=== PATIENT | female | born 1970 | race Caucasian/White ===

== ENCOUNTER → 2017-03-07 | Outpatient (CLI) | payer BC ==
[~2017-03-07] MED LIST: ALBU1AER9 INH; CETICHW4 PO; MONT1TAB3 PO
--- NOTE | 2017-03-07 08:42 | DIAGNOSTIC IMAGING REPORT ---
PELVIC COMPLETE NON OB CLINICAL HISTORY: 46 years-old Female presenting with MENORRHAGIA. TECHNIQUE: Real-time grayscale and color and spectral Doppler ultrasound imaging of the pelvis was performed first using a transabdominal probe and subsequently transvaginal for better characterization. COMPARISON: None. FINDINGS: Uterus: Normal. Anteverted. The uterus measures 9.0 x 5.1 x 6.3 cm. Endometrial stripe measures 12 mm in thickness. Endometrium normal-appearing. Cervix demonstrates multiple nabothian cysts. Right adnexa: Right ovary contains a corpus luteum and an exophytic follicle. Adjacent hyperechoic focus may represent a calcification or adjacent fat. Right ovary measures 2.8 x 1.8 x 3.0 cm. Normal color Doppler flow and arterial and venous waveforms within the ovarian parenchyma. Left adnexa: Left ovary normal. Left ovary measures 2.4 x 2.1 x 2.6 cm. Normal color Doppler flow and arterial and venous waveforms within the ovarian parenchyma. Other: No free fluid. IMPRESSION: No significant abnormality identified within the pelvis. Endometrium normal in thickness and appearance for premenopausal status. Electronically signed by: Iglesia Cordova M.D. 03/07/2017 8:40 AM Dictated Date/Time: 03/07/2017 8:35 AM
--- NOTE | 2017-03-07 09:00 | DIAGNOSTIC IMAGING REPORT ---
SI JOINTS 3 OR MORE VIEWS CLINICAL HISTORY: HIP PAIN pain COMPARISON STUDY: None FINDINGS: Moderate sclerosis of the sacroiliac joints bilaterally. No evidence for bony sclerosis. Vacuum joints are identified bilaterally. No lytic or blastic process. Sacral foramina are symmetric. 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 It may contain grammatical, syntax or spelling errors. Electronically signed by: Jasper Denny M.D. 03/07/2017 8:59 AM Dictated Date/Time: 03/07/2017 8:59 AM
--- NOTE | 2017-03-07 09:01 | DIAGNOSTIC IMAGING REPORT ---
LEFT HIP UNILATERAL 2 VIEWS CLINICAL HISTORY: HIP PAIN pain COMPARISON: None. DISCUSSION: The bones and joint spaces appear intact. There is no evidence of fracture, dislocation or bony disease. There is no evidence for soft tissue swelling. IMPRESSION: Negative study. The above report was generated using voice recognition software. It may contain grammatical, syntax or spelling errors. Electronically signed by: Jasper Denny M.D. 03/07/2017 9:00 AM Dictated Date/Time: 03/07/2017 8:59 AM
== END | disposition home or self-care (01) ==
LOC: C.ULTR 08:01
PROVIDERS: ATTEND Family Medicine
DX: M25.552 Pain in left hip (principal)

== ENCOUNTER → 2017-03-09 | Outpatient (CLI) | payer BC ==
--- NOTE | 2017-03-09 15:43 | DIAGNOSTIC IMAGING REPORT ---
LEFT VENOUS DOPPLER UPR EXT UNI HISTORY: Venous Doppler left arm L ARM PAIN, SELLING, R/O DVT COMPARISON STUDY: None. FINDINGS: The internal jugular vein is patent. There is normal flow within the subclavian vein. There is normal flow and compressibility within the left axillary, basilic, brachial, radial, ulnar, and visualized cephalic veins. IMPRESSION: No DVT within the upper extremity. The above report was generated using voice recognition software. It may contain grammatical, syntax or spelling errors. Electronically signed by: Jasper Denny M.D. 03/09/2017 3:41 PM Dictated Date/Time: 03/09/2017 3:41 PM
== END | disposition home or self-care (01) ==
LOC: C.ULTRBC 14:46
PROVIDERS: ATTEND Family Medicine
DX: M79.89 Other specified soft tissue disorders (principal)